=== PATIENT | female | born 1965 | race Two or more races ===

== ENCOUNTER 2018-01-01 21:23 | Inpatient (IN) | payer MEDICAID ==
[~2018-01-01] VITALS: Ht 154.9 cm; Wt 110.6 kg
[~2018-01-01 21:23] MED LIST: ASPI81CH43 PO; ATOR20TA50 PO; CLOP75TA28 PO; HYDR-4683 PO; LISI-646 PO; LISI40TA PO; METO25TA4 PO
[2018-01-01] MEDS ORDERED: ASPirin 81 mg TAB PO ONE (22:00)
[2018-01-01 22:29] LABS: Basophils # (auto) 0.1 uL; Basophils % (auto) 0.9 % (0.0-2.0); Eosinophils # (auto) 0.5 uL; Eosinophils % (auto) 4.4 % (0.0-7.0); Hematocrit 36.7 % (36.0-46.0); Hemoglobin 12.3 g/dL (12.2-16.2); Lymphocytes # (auto) 2.7 uL; Lymphocytes % (auto) 25.6 % (10.0-50.0); Mean Corpuscular Hemoglobin 30.6 pg (28.0-32.0); Mean Corpuscular Hgb Conc. 33.5 g/dL (32.0-36.0); Mean Corpuscular Volume 91.5 fL (80.0-100.0); Monocytes # (auto) 0.9 uL; Monocytes % (auto) 8.3 % (0.0-12.0); Neutrophils # (auto) 6.4 uL; Neutrophils % (auto) 60.8 % (37.0-80.0); Nucleated Red Blood Cells % 0.1 %; Platelet Count (auto) 289 10^3/uL (140-450); Red Blood Cells 4.01 10^6/uL (4.0-5.20); Red Cell Distribution Width 14.4 % (11.8-14.3); White Blood Cell 10.6 10^3/uL (4.4-10.8)
[2018-01-01 22:50] LABS: Albumin 2.9 g/dL (3.4-5.0); BUN/Creatinine Ratio 13.3; Calcium 7.9 mg/dL (8.5-10.1); Magnesium 2.2 mg/dL (1.6-2.6); Potassium 3.7 mmol/L (3.5-5.1)
[2018-01-01 22:54] LABS: INR 0.93 (0.9-1.15); Partial Thromboplastin Time 26.4 sec (23.78-33.04)
[2018-01-01 22:55] LABS: Bilirubin, Total 0.3 mg/dL (0.2-1.0)
[2018-01-01] MEDS ORDERED: ONDANSETRON HCL 4 MG/2 ML VIAL IV ONE (23:45)
[2018-01-01] MEDS ORDERED: MORPHINE SULFATE 4 MG/ML SYR/VIAL IV ONE (23:45)
[2018-01-02] VITALS (8 sets, daily range): BP systolic 119–150; BP diastolic 59–88
[2018-01-02] MEDS ORDERED: NITROGLYCERIN 0.4 MG SL TAB SL ONE ×2 (00:01→10:00)
[2018-01-02] MEDS ORDERED: TEMAZEPAM 15 MG CAP PO PRN (01:00)
[2018-01-02] MEDS ORDERED: MORPHINE SULF INJ 2 MG/ML SYRINGE 1ML IV PRN (01:00)
[2018-01-02] MEDS ORDERED: ONDANSETRON HCL 4 MG/2 ML VIAL IV PRN (01:00)
[2018-01-02] MEDS: NITROGLYCERIN 0.4 MG SL TAB SL PRN ×3 (02:10→19:03)
[2018-01-02] MEDS: HYDROcodone-ACET 5/325MG TAB PO PRN ×3 (03:47→20:14)
[2018-01-02 06:54] LABS: Basophils # (auto) 0 uL; Basophils % (auto) 0.4 % (0.0-2.0); Eosinophils # (auto) 0.5 uL; Eosinophils % (auto) 4.4 % (0.0-7.0); Hematocrit 34.1 % (36.0-46.0); Hemoglobin 11.5 g/dL (12.2-16.2); Lymphocytes # (auto) 3.1 uL; Lymphocytes % (auto) 28.5 % (10.0-50.0); Mean Corpuscular Hemoglobin 30.7 pg (28.0-32.0); Mean Corpuscular Hgb Conc. 33.7 g/dL (32.0-36.0); Mean Corpuscular Volume 91.2 fL (80.0-100.0); Monocytes % (auto) 9.1 % (0.0-12.0); Neutrophils # (auto) 6.2 uL; Neutrophils % (auto) 57.6 % (37.0-80.0); Nucleated Red Blood Cells % 0.1 %; Platelet Count (auto) 265 10^3/uL (140-450); Red Blood Cells 3.75 10^6/uL (4.0-5.20); Red Cell Distribution Width 13.9 % (11.8-14.3); White Blood Cell 10.7 10^3/uL (4.4-10.8)
[2018-01-02 06:56] LABS: BUN/Creatinine Ratio 16.9; Calcium 8.1 mg/dL (8.5-10.1); Potassium 3.7 mmol/L (3.5-5.1)
[2018-01-02] MEDS ORDERED: METOPROLOL SUCCINATE XL 50 MG TAB PO SCH (10:00)
[2018-01-02] MEDS: CLOPIDOGREL BISULFATE 75 MG TAB PO SCH (10:08)
[2018-01-02] MEDS: LISINOPRIL 20 MG TAB PO SCH (10:08)
[2018-01-02] MEDS ORDERED: ENOXAPARIN SOD 120 MG/0.8 ML SYRINGE SC ONE (19:00)
[2018-01-03] MEDS: HYDROcodone-ACET 5/325MG TAB PO PRN ×4 (00:17→21:33)
[2018-01-03 05:00] VITALS: BP 155/89
[2018-01-03 06:32] LABS: Urine Bacteria NONE SEEN /hpf (None Seen); Urine Blood Negative /uL (Negative); Urine Specific Gravity 1.013 (1.001-1.035); Urine WBC <1 /hpf (0 - 5)
[2018-01-03] MEDS ORDERED: LIDOCAINE 2%HCL (LOCAL ANESTH.) INJ 10ml MDV ONE (07:27)
[2018-01-03] MEDS ORDERED: IODIXANOL 320MG/ML 100ML BTL IV ONE (07:27)
[2018-01-03 09:09] VITALS: BP 153/81
[2018-01-03] MEDS ORDERED: ANGIOMAX 250 MG VIAL IV ONE (11:21)
[2018-01-03] MEDS ORDERED: MIDAZOLAM HCL 1MG/1ML-2 ML VIAL ONE (11:21)
[2018-01-03] MEDS ORDERED: fentaNYL CITRATE 100 MCG/2 ML VL ONE (11:21)
[2018-01-03] MEDS ORDERED: SODIUM CHL 0.9% 0 ML ONE (11:21)
[2018-01-03] MEDS ORDERED: hydrALAZINE HCL 20 MG/ML VL ONE (11:46)
[2018-01-03] MEDS: CLOPIDOGREL BISULFATE 75 MG TAB PO SCH ×2 (11:51→13:00)
[2018-01-03] MEDS: LISINOPRIL 20 MG TAB PO SCH (11:51)
[2018-01-03] MEDS: ACETAMINOPHEN 500 MG TAB PO PRN (14:54)
[2018-01-03 17:34] VITALS: BP 115/58
[2018-01-03 21:51] VITALS: BP 118/63
[2018-01-03] MEDS ORDERED: ATORVASTATIN 20 MG TAB PO SCH (22:00)
[2018-01-04] MEDS: HYDROcodone-ACET 5/325MG TAB PO PRN ×2 (01:34→05:48)
[2018-01-04 05:22] VITALS: BP 168/80
[2018-01-04 05:48] VITALS: BP 157/92
[2018-01-04 06:25] LABS: Basophils # (auto) 0 uL; Basophils % (auto) 0.4 % (0.0-2.0); Eosinophils # (auto) 0.3 uL; Eosinophils % (auto) 2.6 % (0.0-7.0); Hematocrit 36.5 % (36.0-46.0); Hemoglobin 12.1 g/dL (12.2-16.2); Lymphocytes # (auto) 1.8 uL; Lymphocytes % (auto) 17.2 % (10.0-50.0); Mean Corpuscular Hemoglobin 30.1 pg (28.0-32.0); Mean Corpuscular Hgb Conc. 33.1 g/dL (32.0-36.0); Monocytes # (auto) 0.8 uL; Monocytes % (auto) 7.6 % (0.0-12.0); Neutrophils # (auto) 7.7 uL; Neutrophils % (auto) 72.2 % (37.0-80.0); Platelet Count (auto) 335 10^3/uL (140-450); Red Blood Cells 4.01 10^6/uL (4.0-5.20); Red Cell Distribution Width 13.9 % (11.8-14.3); White Blood Cell 10.7 10^3/uL (4.4-10.8)
[2018-01-04 06:48] LABS: BUN/Creatinine Ratio 13.6; Magnesium 2.4 mg/dL (1.6-2.6); Potassium 3.5 mmol/L (3.5-5.1)
[2018-01-04 09:00] VITALS: BP 137/76
[2018-01-04] MEDS ORDERED: POTASSIUM CHL 20 Meq TABLET PO ONE (09:45)
[2018-01-04] MEDS ORDERED: ENOXAPARIN SOD 120 MG/0.8 ML SYRINGE SC SCH (10:00)
[2018-01-04] MEDS ORDERED: ASPirin-EC 81 mg tab PO SCH (10:00)
[2018-01-04] MEDS ORDERED: CLOPIDOGREL BISULFATE 75 MG TAB PO SCH (10:00)
[2018-01-04] MEDS: LISINOPRIL 20 MG TAB PO SCH (10:03)
[2018-01-04] MEDS: ACETAMINOPHEN 500 MG TAB PO PRN (10:16)
[2018-01-04] MEDS ORDERED: ISOS20TA49 PO (10:22)
== END 2018-01-04 12:55 | disposition home or self-care (01) | DRG 192 ==
LOC: ER 21:23 → TELE 21:24 → TELE-WESTW 01-02 01:55
PROVIDERS: ADMIT Nurse Practitioner Family; ATTEND Internal Medicine
PROC: 4A023N7 Measurement of Cardiac Sampling and Pressure, Left Heart, Percutaneous Approach (ICD-10-PCS; principal; 2018-01-03)
PROC: B2111ZZ Fluoroscopy of Multiple Coronary Arteries using Low Osmolar Contrast (ICD-10-PCS; 2018-01-03)
PROC: B2151ZZ Fluoroscopy of Left Heart using Low Osmolar Contrast (ICD-10-PCS; 2018-01-03)
DX: I11.0 Hypertensive heart disease with heart failure (principal); I24.9 Acute ischemic heart disease, unspecified; Z68.42 Body mass index [BMI] 45.0-49.9, adult; I25.110 Atherosclerotic heart disease of native coronary artery with unstable angina pectoris; I50.33 Acute on chronic diastolic (congestive) heart failure; E66.01 Morbid (severe) obesity due to excess calories; E78.5 Hyperlipidemia, unspecified; F17.210 Nicotine dependence, cigarettes, uncomplicated; M54.30 Sciatica, unspecified side; R00.1 Bradycardia, unspecified; E66.9 Obesity, unspecified; Z82.49 Family history of ischemic heart disease and other diseases of the circulatory system; Z79.82 Long term (current) use of aspirin; I25.2 Old myocardial infarction; Z90.710 Acquired absence of both cervix and uterus; Z91.19 Patient's noncompliance with other medical treatment and regimen; Z83.3 Family history of diabetes mellitus; Z95.1 Presence of aortocoronary bypass graft; Z95.5 Presence of coronary angioplasty implant and graft; Z88.8 Allergy status to other drugs, medicaments and biological substances
CPT/HCPCS: 36415; 71046; 80048; 80053; 81001; 83735; 83880; 84484; 85025; 85610; 85730; 86850; 86900; 86901; 87081; 93005; 93458; 94761; 96374; 96375; 99152; A6257; J2001; J2250; J2405; Q9967

== ENCOUNTER 2018-06-30 15:57 | Inpatient (IN) | payer SELFPAY ==
[~2018-06-30] VITALS: Ht 154.9 cm; Wt 107.0 kg
[~2018-06-30 15:57] MED LIST changes: +ISOS20TA49 PO; -LISI40TA PO
[2018-06-30] MEDS ORDERED: ASPirin 81 mg TAB PO ONE (16:15)
[2018-06-30] MEDS ORDERED: cloNIDine HCL 0.1 MG TAB PO ONE (16:15)
[2018-06-30 17:31] LABS: Basophils # (auto) 0 uL; Basophils % (auto) 0.2 % (0.0-2.0); Eosinophils # (auto) 0.3 uL; Eosinophils % (auto) 2.9 % (0.0-7.0); Hematocrit 42.1 % (36.0-46.0); Lymphocytes # (auto) 2.7 uL; Lymphocytes % (auto) 27.5 % (10.0-50.0); Mean Corpuscular Hemoglobin 30.1 pg (28.0-32.0); Mean Corpuscular Hgb Conc. 33.3 g/dL (32.0-36.0); Mean Corpuscular Volume 90.3 fL (80.0-100.0); Monocytes # (auto) 0.7 uL; Monocytes % (auto) 6.7 % (0.0-12.0); Neutrophils # (auto) 6.2 uL; Neutrophils % (auto) 62.7 % (37.0-80.0); Nucleated Red Blood Cells % 0.1 %; Platelet Count (auto) 255 10^3/uL (140-450); Red Blood Cells 4.66 10^6/uL (4.0-5.20); Red Cell Distribution Width 14.9 % (11.8-14.3); White Blood Cell 9.8 10^3/uL (4.4-10.8)
[2018-06-30 17:40] LABS: INR 0.92 (0.9-1.15); Partial Thromboplastin Time 25.9 sec (23.78-33.04); Prothrombin Time 9.9 sec (9.27-12.13)
[2018-06-30 17:48] LABS: Albumin 3.6 g/dL (3.4-5.0); Anion Gap 6 (5-15); Blood Urea Nitrogen 11 mg/dL (7-18); Calcium 8.2 mg/dL (8.5-10.1); Carbon Dioxide 26 mmol/L (21-32); Chloride 107 mmol/L (98-107); Glucose 108 mg/dL (74-106); Potassium 3.8 mmol/L (3.5-5.1); Sodium 139 mmol/L (136-145)
[2018-06-30 17:50] LABS: Alanine Aminotransferase 29 U/L (13-56); Aspartate Aminotransferase 14 U/L (15-37); BUN/Creatinine Ratio 14.5; GFR African American > 60 mL/min; GFR Non-African American > 60 mL/min
[2018-06-30 17:55] LABS: Alkaline Phosphatase 95 U/L (45-117); Bilirubin, Total 0.2 mg/dL (0.2-1.0); Total Protein 7.8 g/dL (6.4-8.2)
[2018-06-30] MEDS ORDERED: MORPHINE SULFATE 4 MG/ML SYR/VIAL IV PRN (18:15)
[2018-06-30] MEDS ORDERED: LACTULOSE 20Gm/30ML SOLN PO PRN (18:15)
[2018-06-30] MEDS: HYDROcodone-ACET 5/325MG TAB PO PRN (18:36)
--- NOTE | 2018-06-30 21:10 | NUR ---
TELE ADMIT FROM ER RECEIVED PATIENT VIA GURNEY FROM ER WITH AT BEDSIDE. NO S/S OF DISTRESS OR SOB. PATIENT REPORTS ONGOING CHEST PAIN X2 DAYS AND REQUESTING PAIN MEDICATION. WILL MEDICATE PER MEDICATION ORDERS. PATIENT A/O X4, AMBULATORY. PT UPDATED ON POC, VERBALIZED UNDERSTANDING. BED LOCKED IN LOW POSITION, CALL LIGHT WITHIN REACH, WILL CONTINUE TO MONITOR PATIENT Q1HR AND PRN.
[2018-06-30 21:30] VITALS: BP 117/69
[2018-06-30] MEDS ORDERED: ATORVASTATIN 20 MG TAB PO SCH (22:00)
[2018-06-30] MEDS: SODIUM CHLOR 0.9% PF (SALINE LOCK) 10ML VIAL/SYR IV SCH (22:32)
[2018-06-30 22:55] VITALS: BP 112/67
[2018-07-01] MEDS: HYDROcodone-ACET 5/325MG TAB PO PRN ×3 (00:46→14:59)
[2018-07-01 05:30] VITALS: BP 140/87
[2018-07-01 06:02] LABS: Cholesterol 186 mg/dL (< 200); HDL Cholesterol 42 mg/dL (40-59); LDL Cholesterol 127 mg/dL (< 100); Triglycerides 175 mg/dL (< 150)
[2018-07-01] MEDS: SODIUM CHLOR 0.9% PF (SALINE LOCK) 10ML VIAL/SYR IV SCH ×3 (06:05→21:59)
--- NOTE | 2018-07-01 08:00 | NUR ---
RECEIVED PATIENT ALERT AND ORIENTED X4, NOT IN DISTRESS, CLEAR SOUNDS IN BILATERAL LUNG SOUNDS, RR=18 SAT=98% RA, SB R=44 ON TELE MONITOR, DENIED CHEST AT THIS MOMENT, ABDOMEN SOFT WITH ACTIVE BS, LAST BM 06/30/18 REPORTED, GENERALIZED WEAKNESS, NOTED, SKIN INTACT WARM TO TOUCH, RESTING ON BED, HEAD OF BED ELEVATED HEAD ON LOWER POSITION, RAILS UP X2, CALL LIGHT ON REACH, PENDING CARDIAC CONSULT, WILL CONTINUE MONITORING.
[2018-07-01 09:00] VITALS: BP 144/73
[2018-07-01] MEDS: NITROGLYCERIN 0.2MG/HR TOPICAL PATCH TD SCH (10:00)
[2018-07-01] MEDS ORDERED: METOPROLOL SUCCINATE XL 50 MG TAB PO SCH (10:00)
[2018-07-01] MEDS: PANTOPRAZOLE 40 MG TAB PO SCH (10:17)
[2018-07-01] MEDS: ASPirin 81 mg TAB PO SCH (10:17)
[2018-07-01] MEDS: CLOPIDOGREL BISULFATE 75 MG TAB PO SCH (10:17)
[2018-07-01] MEDS: LISINOPRIL 20 MG TAB PO SCH (10:18)
[2018-07-01] MEDS: ENOXAPARIN SOD 40 MG/0.4 ML SYRINGE SC SCH (10:18)
[2018-07-01] MEDS: MORPHINE SULFATE 4 MG/ML SYR/VIAL IV PRN ×2 (10:20→20:37)
[2018-07-01 13:00] VITALS: BP 147/80
[2018-07-01] MEDS ORDERED: cloNIDine HCL 0.1 MG TAB PO PRN (13:00)
--- NOTE | 2018-07-01 16:00 | NUR ---
NOT IN DISTRESS, RESTING ON BED, BRADYCARDIA ON TELE MONITOR R=[id number] ASYMPTOMATIC, PENDING CARDIAC CONSULT, DR LALA WAS CALLED AND PAGED FOR FOLLOW UP, WAITING FOR CALL BACK.
[2018-07-01 17:00] VITALS: BP 140/70
--- NOTE | 2018-07-01 18:43 | NUR ---
NOT IN DISTRESS, SITTING ON BED AND EATING DINNER, CARDIAC CONSULT WAS DONE BY DR. LALA, AT , WILL CONTINUE MONITORING.
--- NOTE | 2018-07-01 19:15 | NUR ---
NOT IN DISTRESS, DENIED PAIN, REPORT WAS GIVEN TO THE MANNEQUIN MOLD MAKER RN.
--- NOTE | 2018-07-01 19:44 | NUR ---
RECEIVED PATIENT FROM DAY SHIFT RN. PATIENT RESTING IN BED. NO S/S OF DISTRESS NOTED. C/O BACK AND CHEST PAIN @ 6/10. IV ACCESS OUT WHEN PATIENT SLEEPING. INTACT CATHETER FOUND ON THE BED. WILL COME BACK FOR THE IV INSERTION AND PAIN MEDICATION LATER. PATIENT VERBALIZED UNDERSTANDING. POC INSTRUCTED AND ENCOURAGED PATIENT TO CALL FOR FARM PRODUCT PURCHASER IF NEEDED. BED IN LOWEST POSITION WITH SIDE RAILS UP X 2. CALL RUBIO WITHIN REACH. CONTINUE TO MONITOR FOR CHANGES Q1H AND PRN.
--- NOTE | 2018-07-01 20:38 | NUR ---
IV insertion AND PAIN MANAGEMENT IV access obtained, via clean sterile technique by inserting [22] gauge catheter at [LFA] after [1] attempt(s). IV secured properly. No trauma to site. Patient tolerated well. PAIN MEDICATION GIVEN ORDERED FOR PAIN @ 6/10. CONTINUE TO MONITOR.
[2018-07-01] MEDS: ATORVASTATIN 20 MG TAB PO SCH (21:58)
[2018-07-01 22:00] VITALS: BP 148/77
--- NOTE | 2018-07-01 22:10 | NUR ---
PATIENT'S FAMILY CALLED, PASSWORD CONFIRMED. UPDATED INFO, PHONE TRANSFERRED TO PATIENT AFTER.
[2018-07-02] MEDS: HYDROcodone-ACET 5/325MG TAB PO PRN ×3 (00:04→21:37)
--- NOTE | 2018-07-02 00:05 | NUR ---
PATIENT C/O PAIN @ 11/14. MEDICATION GIVEN ORDERED. CONTINUE TO MONITOR.
--- NOTE | 2018-07-02 00:48 | NUR ---
URINE SAMPLE COLLECTED AND SENT. CONTINUE CARE.
[2018-07-02 00:54] LABS: Urine Bacteria FEW /hpf (None Seen); Urine Blood Negative /uL (Negative); Urine Hyaline Cast FEW /lpf (0 - 2); Urine Mucus FEW (None Seen); Urine Specific Gravity 1.025 (1.001-1.035); Urine WBC 1 /hpf (0 - 5)
[2018-07-02 01:49] LABS: Alcohol, Urine < 3.0 mg/dL (0-5); Amphetamine Screen, Urine NEGATIVE (NEGATIVE); Barbiturate Scree,Urine NEGATIVE (NEGATIVE); Benzodiazephine Screen, Urine NEGATIVE (NEGATIVE); Cannabinoid Screen, Urine NEGATIVE (NEGATIVE); Cocaine Screen, Urine NEGATIVE (NEGATIVE); Opiate Scree,Urine POSITIVE (NEGATIVE); Phencyclidine Screen, Urine NEGATIVE (NEGATIVE)
[2018-07-02] MEDS: MORPHINE SULFATE 4 MG/ML SYR/VIAL IV PRN ×3 (03:34→19:47)
--- NOTE | 2018-07-02 03:34 | NUR ---
PATIENT C/O PAIN @ 11/14. MEDICATION GIVEN ORDERED. CONTINUE TO MONITOR.
--- NOTE | 2018-07-02 04:03 | NUR ---
BAKERY CHEF I was called to the main lobby to speak to the of patient, he is upset states that other people are allowed to stay the night but he is not allowed to. I advised that I walked the unit and looked in every room and there are no other visitors staying the night. At this time the changed his story and said that he was called and advised to harley over because "his was sicker", than when he got here they told him that there are two patients with his 's name and they called the wrong family that his was fine and since he was here that he could stay. I advised the patient that I checked the census and there was only one patient in the whole hospital with his 's name and that the primary RN does not recall the incident he is referring to. The than stated that he was sitting in the [facility] waiting room where there were other visitors and we are kicking him out, I again went over the visitors policy which included different visiting hours for different units because those patients are sicker than the patients on the [facility]. states that he was here with a different visit with his and was allowed to stay I apologized that we did not follow policy at that time but we are going to follow the policy at this point and he became confrontational and started repeating what I was saying to him back to me over and over so I advised that he could go back to the room to get his keys and due to his concerns for driving in the dark and being on his night medications he could stay in the main lobby until it was safe for him to drive I advised that he could call his but going to the unit would not be permitted until visiting hours and this was for the rest of this stay unless her status changes. He was provided with my professional information and the Director for the units information to follow up if he feels his issue is not resolved.
[2018-07-02] MEDS: SODIUM CHLOR 0.9% PF (SALINE LOCK) 10ML VIAL/SYR IV SCH ×3 (05:36→21:36)
[2018-07-02 05:42] VITALS: BP 131/78
--- NOTE | 2018-07-02 08:00 | NUR ---
RECEIVED PATIENT ALERT AND ORIENTED X4, NOT IN DISTRESS, CLEAR SOUNDS IN BILATERAL LUNG LOBES, RR=18 SAT=98% RA, S SAMPSON W/BBB R=42-46 ON TELE MONITOR, DENIED CHEST PAIN OR DISCOMFORT, ABDOMEN SOFT WITH ACTIVE BS, LAST BM=06/29/18 REPORTED, GENERALIZED WEAKNESS, NOTED, SKIN INTACT WARM TO TOUCH RADIAL AND PEDAL PULSES PALPABLE, RESTING ON BED, PENDING STRESS TEST ON WEDNESDAY REPORTED, HEAD OF BED ELEVATED, BED ON LOWER POSITION, RAILS UP X2, CALL LIGHT ON REACH, WILL CONTINUE MONITORING.
[2018-07-02 09:00] VITALS: BP 138/76
[2018-07-02] MEDS: ASPirin 81 mg TAB PO SCH (09:48)
[2018-07-02] MEDS: PANTOPRAZOLE 40 MG TAB PO SCH (09:48)
[2018-07-02] MEDS: LISINOPRIL 20 MG TAB PO SCH (09:49)
[2018-07-02] MEDS: ENOXAPARIN SOD 40 MG/0.4 ML SYRINGE SC SCH (09:49)
[2018-07-02] MEDS: CLOPIDOGREL BISULFATE 75 MG TAB PO SCH (09:50)
[2018-07-02] MEDS: NITROGLYCERIN 0.2MG/HR TOPICAL PATCH TD SCH (09:50)
--- NOTE | 2018-07-02 10:00 | NUR ---
C/O GENERALIZED BODY ACH PAIN L=7/10 NORCO PO PRN WAS GIVEN 30 MINUTES LATER PAIN L=3/10, OUT OF BED TO BR, TOLERATED WELL, SITTING ON BED TALKING TO , WILL CONTINUE MONITORING.
--- NOTE | 2018-07-02 12:56 | NUR ---
TOLERATED 100% OF LUNCH TRAY, NOT IN DISTRESS, DENIED PAIN, RESTING ON BED, PENDING STRESS TEST AND ECHO, WILL CONTINUE MONITORING.
[2018-07-02 13:00] VITALS: BP 130/70
[2018-07-02 15:16] VITALS: BP 128/74
--- NOTE | 2018-07-02 19:15 | NUR ---
NOT IN DISTRESS, DENIED PAIN, REPORT WAS GIVEN TO THE TRANSPORTATION ENGINEER RN.
--- NOTE | 2018-07-02 19:50 | NUR ---
RECEIVED PATIENT FROM DAY SHIFT RN. PATIENT RESTING IN BED. FAMILY AT BEDSIDE. NO S/S OF DISTRESS NOTED. C/O BACK AND CHEST PAIN @ 7/10. MEDICATED PATIENT ORDERED. PATIENT C/O HARD TO BREATH, OXYGEN APPLIED @ 2L/NC. ROSA FELLS BETTER AT THAT. POC INSTRUCTED AND ENCOURAGED PATIENT TO CALL FOR FISH SKINNING MACHINE FEEDER IF NEEDED. BED IN LOWEST POSITION WITH SIDE RAILS UP X 2. CALL RUBIO WITHIN REACH. CONTINUE TO MONITOR FOR CHANGES Q1H AND PRN.
--- NOTE | 2018-07-02 20:27 | NUR ---
REASSESSED PATIENT, PAIN LEVEL DOWN TO 5/10. WILL CONTINUE TO MONITOR. STILL AT BEDSIDE, REINFORCED THE THAT THE VISIT HOURS IS DUE, HE SHOULD GO, HE STATED THAT HE KNEW AND WE DID THE SAME TO HIM LAST NIGHT. AND WE EVEN CALLED SECURITY TO LET HIM GO. TOLD THE THAT HE IS NOT SUPPOSED TO STAY HERE. WILL GO BACK AND CHECK LATER.
[2018-07-02] MEDS: ATORVASTATIN 20 MG TAB PO SCH (21:36)
[2018-07-02 22:15] VITALS: BP 141/68
--- NOTE | 2018-07-02 22:45 | NUR ---
PATIENT SLEEPING. NO S/S OF DISTRESS AND PAIN NOTED. CONTINUE TO MONITOR.
--- NOTE | 2018-07-03 00:03 | NUR ---
PATIENT'S FAMILY CALLED, PASSWORD CONFIRMED. INFO UPDATED. CONTINUE CARE.
[2018-07-03] MEDS: MORPHINE SULFATE 4 MG/ML SYR/VIAL IV PRN ×2 (01:45→19:42)
--- NOTE | 2018-07-03 01:46 | NUR ---
[facility] CALLED THAT PATIENT'S HR DOWN TO 30S. CHECKED PATIENT, NO S/S OF DISTRESS NOTED. PATIENT SLEEPING. WOKE PATIENT UP. HR BACK TO 46. PATIENT C/O PAIN @ 8/10, MEDICATED PATIENT ORDERED. CONTINUE TO MONITOR.
--- NOTE | 2018-07-03 03:01 | NUR ---
PATIENT UP TO BATHROOM WITH STEADY GAIT. NO S/S OF DISTRESS NOTED. STATED THAT PAIN GETTING BETTER. CONTINUE TO MONITOR.
[2018-07-03] MEDS: SODIUM CHLOR 0.9% PF (SALINE LOCK) 10ML VIAL/SYR IV SCH ×3 (05:44→21:56)
[2018-07-03 05:50] VITALS: BP 157/93
--- NOTE | 2018-07-03 08:00 | NUR ---
Opening Shift Note Assumed care of patient, awake and alert. No S/S of distress/SOB or pain. Instructed on POC and to call for assist PRN, will continue to monitor for changes Q1hr and PRN.
--- NOTE | 2018-07-03 08:10 | NUR ---
IV insertion IV access obtained, via clean sterile technique by inserting 20 gauge catheter at after attempt(s). IV secured properly. No trauma to site. Patient tolerated well. Addendum: 07/03/18 at 1141 by MARY SAHU RN Right hand. after 1 attempt.
[2018-07-03] MEDS: HYDROcodone-ACET 5/325MG TAB PO PRN ×2 (08:14→14:29)
--- NOTE | 2018-07-03 08:15 | NUR ---
IV insertion IV access obtained, via clean sterile technique by inserting 20 gauge catheter at after attempt(s). IV secured properly. No trauma to site. Patient tolerated well.
[2018-07-03 09:00] VITALS: BP 170/86
[2018-07-03] MEDS: NITROGLYCERIN 0.2MG/HR TOPICAL PATCH TD SCH (09:09)
[2018-07-03] MEDS: PANTOPRAZOLE 40 MG TAB PO SCH (09:09)
[2018-07-03] MEDS: CLOPIDOGREL BISULFATE 75 MG TAB PO SCH (09:09)
[2018-07-03] MEDS: ENOXAPARIN SOD 40 MG/0.4 ML SYRINGE SC SCH (09:10)
[2018-07-03] MEDS: LISINOPRIL 20 MG TAB PO SCH (09:10)
[2018-07-03] MEDS: ASPirin 81 mg TAB PO SCH (09:10)
[2018-07-03] MEDS ORDERED: hydrALAZINE HCL 25 MG TAB PO PRN ×2 (09:30→16:30)
--- NOTE | 2018-07-03 10:53 | NUR ---
Dr. George paged regarding patient's HR between 44-53, asymptomatic , awaiting to call back.
[2018-07-03 13:00] VITALS: BP 164/89
--- NOTE | 2018-07-03 15:47 | NUR ---
Received order from Dr. George , noted and carried out.
[2018-07-03 16:51] VITALS: BP 145/82
--- NOTE | 2018-07-03 19:44 | NUR ---
RECEIVED PATIENT FROM DAY SHIFT RN. PATIENT RESTING IN BED. FAMILY AT BEDSIDE. NO S/S OF DISTRESS NOTED. C/O BACK AND CHEST PAIN @ 8/10. MEDICATED PATIENT ORDERED. REINFORCED PATIENT NPO AFTER MIDNIGHT FOR PROCEDURE TOMORROW. PATIENT VERBALIZED UNDERSTANDING. POC INSTRUCTED AND ENCOURAGED PATIENT TO CALL FOR BOX CLOSING MACHINE OPERATOR IF NEEDED. BED IN LOWEST POSITION WITH SIDE RAILS UP X 2. CALL RUBIO WITHIN REACH. CONTINUE TO MONITOR FOR CHANGES Q1H AND PRN.
[2018-07-03] MEDS: ATORVASTATIN 20 MG TAB PO SCH (21:55)
[2018-07-03 22:00] VITALS: BP 154/79
[2018-07-04] MEDS: hydrALAZINE HCL 25 MG TAB PO SCH ×5 (00:05→22:12)
[2018-07-04] MEDS: MORPHINE SULFATE 4 MG/ML SYR/VIAL IV PRN ×3 (00:05→08:18)
--- NOTE | 2018-07-04 00:12 | NUR ---
PATIENT C/O PAIN @ 12/14. MEDICATED PATIENT ORDERED. REINFORCED NPO FROM NOW. PATIENT VERBALIZED UNDERSTANDING. WATER AND FOOD TOOK AWAY FROM PATIENT. CONTINUE TO MONITOR.
--- NOTE | 2018-07-04 02:11 | NUR ---
PATIENT SLEEPING. NO S/S OF DISTRESS AND PAIN NOTED. CONTINUE TO MONITOR.
[2018-07-04] MEDS: SODIUM CHLOR 0.9% PF (SALINE LOCK) 10ML VIAL/SYR IV SCH ×3 (04:10→22:12)
--- NOTE | 2018-07-04 04:10 | NUR ---
PATIENT C/O PAIN @ 12/14. MEDICATED PATIENT ORDERED. CONTINUE TO MONITOR.
[2018-07-04 05:00] VITALS: BP 146/70
--- NOTE | 2018-07-04 06:39 | NUR ---
REINFORCED NPO NOW FOR PROCEDURE LATER. PATIENT VERBALIZED UNDERSTANDING . CONTINUE CARE.
[2018-07-04] MEDS: HYDROcodone-ACET 5/325MG TAB PO PRN ×2 (07:35→14:02)
--- NOTE | 2018-07-04 07:50 | NUR ---
Opening Shift Note Assumed care of patient, awake and alert. No S/S of distress/SOB. Instructed on POC and to call for assist PRN, will continue to monitor for changes Q1hr and PRN.
[2018-07-04 09:00] VITALS: BP 179/116
--- NOTE | 2018-07-04 09:00 | NUR ---
Received call from stress lab, states they cannot do the stress test today due to shortage of isotopes. Addendum: 07/04/18 at 1330 by JARROD ARRIAZA RN double entry.
--- NOTE | 2018-07-04 09:00 | NUR ---
Received call from stress lab, states they cannot do the stress test today due to shortage of isotopes. Patient informed.
--- NOTE | 2018-07-04 09:20 | NUR ---
Dr. Valentin at bedside and explained POC to patient and family.
[2018-07-04] MEDS: PROMETHAZINE HCL 25 MG/ML 1ML IV PRN ×2 (09:23→18:50)
--- NOTE | 2018-07-04 10:35 | NUR ---
Called echo lab, left message re: patient has order for echo.
[2018-07-04] MEDS: ASPirin 81 mg TAB PO SCH (11:29)
[2018-07-04] MEDS: CLOPIDOGREL BISULFATE 75 MG TAB PO SCH (11:29)
[2018-07-04] MEDS: PANTOPRAZOLE 40 MG TAB PO SCH (11:29)
[2018-07-04] MEDS: NITROGLYCERIN 0.2MG/HR TOPICAL PATCH TD SCH (11:30)
[2018-07-04] MEDS: LISINOPRIL 20 MG TAB PO SCH (11:31)
[2018-07-04] MEDS: ENOXAPARIN SOD 40 MG/0.4 ML SYRINGE SC SCH (11:31)
[2018-07-04 13:24] VITALS: BP 178/78
--- NOTE | 2018-07-04 15:37 | NUR ---
Nutrition Assessment Notes please see attached link for complete assessment Est. Needs ABW [id number] kcal (17-20kcal/kgABW), 62-78 gms pro (0.8-1.0 gms/kgABW). Will continue to monitor pertinent labs and reassess nutrient need prn Addendum: 07/04/18 at [address] Amended: Links added.
[2018-07-04 17:00] VITALS: BP 137/67
--- NOTE | 2018-07-04 18:45 | NUR ---
IV removal IV site infiltrated. DC'd with clean sterile technique, catheter fully intact. Pressure dressing applied to site. Patient tolerated well.
--- NOTE | 2018-07-04 20:00 | NUR ---
Opening Shift Note Assumed care of patient, awake and alert, oriented x4. No S/S of distress/SOB or pain. Instructed on POC, verbalized understanding, aware she will be npo p mn for stress test in am and will be needing another iv line. Side rails up x2, bed in lowest locked position, non skid socks on. Instructed to call for assist PRN, call light within reach, will continue to monitor for changes Q1hr and PRN.
[2018-07-04 22:00] VITALS: BP 123/85
--- NOTE | 2018-07-04 22:08 | NUR ---
Pt transferred to room 216A via bed with all personal belongings. sterile technician aware. Gary informed. Continue care.
[2018-07-04] MEDS: ATORVASTATIN 20 MG TAB PO SCH (22:12)
[2018-07-05 05:00] VITALS: BP 143/85
[2018-07-05] MEDS: hydrALAZINE HCL 25 MG TAB PO SCH ×5 (05:45→22:05)
[2018-07-05] MEDS: SODIUM CHLOR 0.9% PF (SALINE LOCK) 10ML VIAL/SYR IV SCH ×3 (05:45→22:04)
--- NOTE | 2018-07-05 06:00 | NUR ---
IV insertion IV access obtained, via clean sterile technique by inserting 22 gauge catheter at ILEANA after 2 attempt(s). IV secured properly. No trauma to site. Patient tolerated well. NOTE:
--- NOTE | 2018-07-05 07:45 | NUR ---
Opening Shift Note Assumed care of patient, asleep. No S/S of distress/SOB or pain. Will continue to monitor for changes Q1hr and PRN.
--- NOTE | 2018-07-05 08:53 | NUR ---
[facility] called informing that patient's tele monitor goes bradycardia and a little bit of tachycardia.
[2018-07-05 09:00] VITALS: BP 158/82
--- NOTE | 2018-07-05 09:00 | NUR ---
Dr. Valentin informed re: [facility] called informing that patient's tele monitor goes bradycardia and a little bit of tachycardia.
[2018-07-05] MEDS: MORPHINE SULFATE 4 MG/ML SYR/VIAL IV PRN ×2 (09:34→14:51)
[2018-07-05] MEDS: PROMETHAZINE HCL 25 MG/ML 1ML IV PRN (09:35)
--- NOTE | 2018-07-05 09:45 | NUR ---
SPOKE TO KEE. KEE STATES TO KEEP PATIENT ON NPO INCLUDING MEDS.
--- NOTE | 2018-07-05 10:00 | NUR ---
PATIENT ON NPO FOR PROCEDURE. 10 AM MEDS HELD AT THIS TIME.
[2018-07-05] MEDS ORDERED: ADENOSINE 91 MG in GIVE UN-DILUTED 0 ML IV STA (10:21)
--- NOTE | 2018-07-05 11:55 | NUR ---
Patient was taken downstairs for stress test.
[2018-07-05 12:40] VITALS: BP 181/98
[2018-07-05 13:00] VITALS: BP 155/95
[2018-07-05] MEDS: PANTOPRAZOLE 40 MG TAB PO SCH (14:05)
[2018-07-05] MEDS: ENOXAPARIN SOD 40 MG/0.4 ML SYRINGE SC SCH (14:05)
[2018-07-05] MEDS: LISINOPRIL 20 MG TAB PO SCH (14:05)
[2018-07-05] MEDS: ASPirin 81 mg TAB PO SCH (14:06)
[2018-07-05] MEDS: CLOPIDOGREL BISULFATE 75 MG TAB PO SCH (14:06)
--- NOTE | 2018-07-05 15:08 | NUR ---
PATIENT COMPLAINED OF CHEST PAIN.
[2018-07-05] MEDS: NITROGLYCERIN 0.4 MG SL TAB SL PRN ×2 (15:37→15:42)
--- NOTE | 2018-07-05 15:45 | NUR ---
CHEST PAIN PROTOCOL FOLLOWED. EKG RESULT SHOWED TO DR. PETERS, ATTACHED TO CHART. PATIENT HAD 2 DOSES OF NITROGLYCERIN PATIENT BP DROPPED TO 91/62 mmHg. Patient states no relief. Will inform Dr. Valentin.
[2018-07-05] MEDS: NITROGLYCERIN 0.2MG/HR TOPICAL PATCH TD SCH (15:54)
--- NOTE | 2018-07-05 15:58 | NUR ---
PAGED DR. LALA RE: PATIENT COMPLAINING OF CHEST PAIN.
[2018-07-05] MEDS ORDERED: NALBUPHINE HCL 10 MG/1ml INJECTION IV ONE (16:00)
--- NOTE | 2018-07-05 16:00 | NUR ---
DR. LALA CALLED BACK, NEW ORDER MADE.
[2018-07-05] MEDS: ACETAMINOPHEN 500 MG TAB PO PRN (16:47)
[2018-07-05 17:00] VITALS: BP 131/73
--- NOTE | 2018-07-05 18:00 | NUR ---
Hydralazine held, patient took the medication 4 hours ago, scheduled every 6 hours. Will inform night RN.
--- NOTE | 2018-07-05 20:20 | NUR ---
Opening Shift Note Assumed care of patient, awake and alert, oriented x4, c/o mild chest pain 4/10, will medicate and will reassess. Instructed on POC, verbalized understanding, aware she will be npo p mn for lhc in am, pt and pt's has not spoken to Dr George yet regarding lhc, consents to be signed after speaking with MD. Side rails up x2, bed in lowest locked position, non skid socks on. Instructed to call for assist PRN, call light within reach, will continue to monitor for changes Q1hr and PRN.
[2018-07-05] MEDS: HYDROcodone-ACET 5/325MG TAB PO PRN (20:23)
[2018-07-05 22:00] VITALS: BP 138/66
[2018-07-05] MEDS: ATORVASTATIN 20 MG TAB PO SCH (22:05)
[2018-07-06] MEDS: ACETAMINOPHEN 500 MG TAB PO PRN ×2 (00:22→12:36)
[2018-07-06] MEDS: MORPHINE SULFATE 4 MG/ML SYR/VIAL IV PRN (00:22)
[2018-07-06 05:00] VITALS: BP 131/66
[2018-07-06] MEDS: SODIUM CHLOR 0.9% PF (SALINE LOCK) 10ML VIAL/SYR IV SCH ×3 (05:40→21:57)
[2018-07-06] MEDS: hydrALAZINE HCL 25 MG TAB PO SCH ×4 (05:40→21:57)
[2018-07-06] MEDS: HYDROcodone-ACET 5/325MG TAB PO PRN ×2 (05:41→18:50)
[2018-07-06 05:59] LABS: Basophils # (auto) 0 uL; Basophils % (auto) 0.2 % (0.0-2.0); Eosinophils # (auto) 0 uL; Hematocrit 39.3 % (36.0-46.0); Hemoglobin 13.2 g/dL (12.2-16.2); Lymphocytes # (auto) 1.1 uL; Lymphocytes % (auto) 8.6 % (10.0-50.0); Mean Corpuscular Hemoglobin 30.1 pg (28.0-32.0); Mean Corpuscular Hgb Conc. 33.6 g/dL (32.0-36.0); Mean Corpuscular Volume 89.6 fL (80.0-100.0); Monocytes # (auto) 0.7 uL; Monocytes % (auto) 5.4 % (0.0-12.0); Neutrophils # (auto) 11.2 uL; Neutrophils % (auto) 85.8 % (37.0-80.0); Platelet Count (auto) 197 10^3/uL (140-450); Red Blood Cells 4.39 10^6/uL (4.0-5.20); Red Cell Distribution Width 14.8 % (11.8-14.3)
[2018-07-06 06:16] LABS: INR 1.04 (0.9-1.15); Partial Thromboplastin Time 28.4 sec (23.78-33.04); Prothrombin Time 11.1 sec (9.27-12.13)
[2018-07-06 06:21] LABS: BUN/Creatinine Ratio 17.8; Calcium 8.4 mg/dL (8.5-10.1); Potassium 3.5 mmol/L (3.5-5.1)
--- NOTE | 2018-07-06 06:40 | NUR ---
CART DRIVER INFORMED LAURA PAYAN INFORMED OF PT HAVING FEVER YESTERDAY AND LAST NIGHT AND WBC THIS AM WENT UP TO 13. RECEIVED NEW ORDER TO OBTAIN UA, BLOOD AND URINE CX, THEN START ROCEPHIN 1GM IV DAILY AFTER OBTAINING SAMPLES. PT INFORMED, VERBALIZED UNDERSTANDING. SPECIMEN CUP AT BEDSIDE. WILL ENDORSE TO DAY RN.
--- NOTE | 2018-07-06 07:15 | NUR ---
OPENING SHIFT NOTE PATIENT IS RESTING IN BED, NO S/S OF DISTRESS NOTED AT THIS TIME. BED IN LOWEST LOCKED POSITION, WILL CONTINUE TO MONITOR.
[2018-07-06 07:59] VITALS: BP 131/66
[2018-07-06 09:00] VITALS: BP 96/69
[2018-07-06] MEDS: PANTOPRAZOLE 40 MG TAB PO SCH (10:00)
[2018-07-06] MEDS: NITROGLYCERIN 0.2MG/HR TOPICAL PATCH TD SCH (10:00)
[2018-07-06] MEDS: LISINOPRIL 20 MG TAB PO SCH (10:00)
--- NOTE | 2018-07-06 10:16 | NUR ---
PATIENT TAKEN TO TOOL DRESSER VIA BED. NO S/S OF DISTRESS NOTED AT THIS TIME.
[2018-07-06 11:10] LABS: Urine Bacteria FEW /hpf (None Seen); Urine Blood Negative /uL (Negative); Urine Mucus FEW (None Seen); Urine Specific Gravity 1.031 (1.001-1.035); Urine WBC 3 /hpf (0 - 5)
[2018-07-06] MEDS ORDERED: IOHEXOL 350 MG/ML 100ML IJ ONE (15:13)
[2018-07-06] MEDS ORDERED: LIDOCAINE 2%HCL (LOCAL ANESTH.) INJ 20ML MDV ONE (15:13)
[2018-07-06] MEDS ORDERED: ANGIOMAX 250 MG VIAL IV ONE (15:23)
[2018-07-06] MEDS ORDERED: fentaNYL CITRATE 100 MCG/2 ML VL ONE (15:23)
[2018-07-06] MEDS ORDERED: MIDAZOLAM HCL 1MG/1ML-2 ML VIAL ONE (15:24)
[2018-07-06] MEDS ORDERED: SODIUM CHL 0.9% 0 ML ONE (15:24)
--- NOTE | 2018-07-06 17:14 | NUR ---
PATIENT IS BACK TO ROOM. NO S/S OF DISTRESS NOTED AT THIS TIME. PATIENT IS LAYING FLAT UNTIL 1830. PATIENT VERBALIZED UNDERSTANDING. WILL CONTINUE TO MONITOR.
[2018-07-06] MEDS: ASPirin 81 mg TAB PO SCH (17:29)
[2018-07-06] MEDS: CLOPIDOGREL BISULFATE 75 MG TAB PO SCH (17:29)
[2018-07-06] MEDS: cefTRIAXone 1GM/50ML D5W 50 ML IV SCH (17:29)
--- NOTE | 2018-07-06 19:17 | NUR ---
GAVE REPORT TO ALESHIA GALARZA.
--- NOTE | 2018-07-06 20:15 | NUR ---
Opening Shift Note Assumed care of patient, awake and alert, oriented x4. No S/S of distress/SOB or pain. R groin dsg clean, dry and intact, site asymptomatic, pedal pulses palpable. Instructed on POC, verbalized understanding. Side rails up x2, bed in lowest locked position, non skid socks on. Instructed to call for assist PRN, call light within reach, will continue to monitor for changes Q1hr and PRN.
[2018-07-06] MEDS: ATORVASTATIN 20 MG TAB PO SCH (21:57)
[2018-07-06 22:00] VITALS: BP 151/85
[2018-07-07] MEDS: HYDROcodone-ACET 5/325MG TAB PO PRN ×2 (01:07→07:53)
[2018-07-07 05:26] VITALS: BP 138/62
[2018-07-07] MEDS: hydrALAZINE HCL 25 MG TAB PO SCH (05:57)
[2018-07-07] MEDS: SODIUM CHLOR 0.9% PF (SALINE LOCK) 10ML VIAL/SYR IV SCH (05:57)
[2018-07-07 08:49] VITALS: BP 141/69
[2018-07-07] MEDS: cefTRIAXone 1GM/50ML D5W 50 ML IV SCH (08:54)
[2018-07-07] MEDS: PANTOPRAZOLE 40 MG TAB PO SCH (09:17)
[2018-07-07] MEDS: LISINOPRIL 20 MG TAB PO SCH (09:17)
[2018-07-07] MEDS: ASPirin 81 mg TAB PO SCH (09:17)
[2018-07-07] MEDS: CLOPIDOGREL BISULFATE 75 MG TAB PO SCH (09:17)
[2018-07-07] MEDS ORDERED: ENOXAPARIN SOD 40 MG/0.4 ML SYRINGE SC SCH (10:00)
[2018-07-07] MEDS: NITROGLYCERIN 0.2MG/HR TOPICAL PATCH TD SCH (10:00)
--- NOTE | 2018-07-07 10:26 | NUR ---
PT SEEN BY DR. CAVANAUGH, HE SAID PT CAN GO HOME.
[2018-07-07 10:53] VITALS: BP 141/69
--- NOTE | 2018-07-07 12:25 | NUR ---
Discharge instructions given as ordered. Encourage to follow up with [facility] IN 2 WEEKS TEL# AND ADDRESS PROVIDED TO THE PT. INSTRUCTED TO FOLLOW UP WITH CARDIOLOGY THROUGH PCP SOON SHE GET HER INSURANCE ACTIVE, DR. LALA'S OFFICE PHONE NUMBER GIVEN TO PT TO MAKE AN APPOINTMENT. All questions and concerns addressed. Patient verbalized understanding. Medication reconciliation form completed and copy given to patient. IV removed with catheter intact, pressure dressing applied. Telemetry unit returned to ICU. Patient taken to vehicle via wheelchair with all personal belongings, accompanied by staff and family member. No distress noted at time of departure.
== END 2018-07-07 12:25 | disposition home or self-care (01) | DRG 287 ==
LOC: ER 15:59 → TELE 18:07 → TELE-CENTR 21:39
PROVIDERS: ADMIT Internal Medicine; ATTEND Family Medicine
PROC: 4A023N7 Measurement of Cardiac Sampling and Pressure, Left Heart, Percutaneous Approach (ICD-10-PCS; principal; 2018-07-06)
PROC: B2111ZZ Fluoroscopy of Multiple Coronary Arteries using Low Osmolar Contrast (ICD-10-PCS; 2018-07-06)
PROC: B2151ZZ Fluoroscopy of Left Heart using Low Osmolar Contrast (ICD-10-PCS; 2018-07-06)
DX: I25.10 Atherosclerotic heart disease of native coronary artery without angina pectoris (principal); I24.9 Acute ischemic heart disease, unspecified; Z68.41 Body mass index [BMI] 40.0-44.9, adult; E78.00 Pure hypercholesterolemia, unspecified; E78.5 Hyperlipidemia, unspecified; F17.210 Nicotine dependence, cigarettes, uncomplicated; I16.0 Hypertensive urgency; E66.01 Morbid (severe) obesity due to excess calories; I50.9 Heart failure, unspecified; I11.0 Hypertensive heart disease with heart failure; I25.2 Old myocardial infarction; Z79.82 Long term (current) use of aspirin; Z79.899 Other long term (current) drug therapy; Z83.3 Family history of diabetes mellitus; Z90.710 Acquired absence of both cervix and uterus; Z91.19 Patient's noncompliance with other medical treatment and regimen; Z95.5 Presence of coronary angioplasty implant and graft; Z82.61 Family history of arthritis; Z82.49 Family history of ischemic heart disease and other diseases of the circulatory system; Z88.8 Allergy status to other drugs, medicaments and biological substances
CPT/HCPCS: 36415; 71046; 78452; 80048; 80053; 80061; 80307; 81001; 82550; 83880; 84443; 84484; 85025; 85379; 85610; 85652; 85730; 86141; 86850; 86900; 86901; 87040; 87086; 93005; 93017; 93306; A6257; G0378; J0153; J0696; J2250

== ENCOUNTER 2018-08-19 19:47 | Inpatient (IN) | payer MEDICAID ==
[~2018-08-19] VITALS: Ht 154.9 cm; Wt 115.2 kg
[2018-08-19 20:45] LABS: Basophils # (auto) 0.1 uL; Basophils % (auto) 0.6 % (0.0-2.0); Eosinophils # (auto) 0.3 uL; Eosinophils % (auto) 2.8 % (0.0-7.0); Hematocrit 41.1 % (36.0-46.0); Hemoglobin 13.8 g/dL (12.2-16.2); Lymphocytes # (auto) 2.8 uL; Lymphocytes % (auto) 26.7 % (10.0-50.0); Mean Corpuscular Hemoglobin 30.6 pg (28.0-32.0); Mean Corpuscular Hgb Conc. 33.6 g/dL (32.0-36.0); Monocytes # (auto) 0.8 uL; Monocytes % (auto) 7.8 % (0.0-12.0); Neutrophils # (auto) 6.5 uL; Neutrophils % (auto) 62.1 % (37.0-80.0); Nucleated Red Blood Cells % 0.1 %; Platelet Count (auto) 224 10^3/uL (140-450); Red Blood Cells 4.52 10^6/uL (4.0-5.20); Red Cell Distribution Width 14.3 % (11.8-14.3); White Blood Cell 10.5 10^3/uL (4.4-10.8)
[2018-08-19 21:00] LABS: Albumin 3.3 g/dL (3.4-5.0); Anion Gap 4 (5-15); Blood Urea Nitrogen 18 mg/dL (7-18); Calcium 8.2 mg/dL (8.5-10.1); Carbon Dioxide 27 mmol/L (21-32); Chloride 111 mmol/L (98-107); Glucose 106 mg/dL (74-106); Potassium 4.1 mmol/L (3.5-5.1); Sodium 142 mmol/L (136-145)
[2018-08-19 21:02] LABS: Alanine Aminotransferase 20 U/L (13-56); Aspartate Aminotransferase 11 U/L (15-37); BUN/Creatinine Ratio 21.7; GFR African American 92 mL/min; GFR Non-African American 76 mL/min
[2018-08-19 21:07] LABS: Alkaline Phosphatase 105 U/L (45-117); Bilirubin, Total 0.1 mg/dL (0.2-1.0); Total Protein 7.5 g/dL (6.4-8.2)
[2018-08-19] MEDS ORDERED: MORPHINE SULFATE 4 MG/ML SYR/VIAL IV ONE (21:15)
[2018-08-19] MEDS ORDERED: cloNIDine HCL 0.1 MG TAB PO ONE (21:15)
[2018-08-19] MEDS ORDERED: ONDANSETRON HCL 4 MG/2 ML VIAL IV ONE (21:15)
[2018-08-19] MEDS ORDERED: ASPirin 81 mg TAB PO ONE (21:15)
[2018-08-19 21:28] LABS: Urine Bacteria FEW /hpf (None Seen); Urine Blood Negative /uL (Negative); Urine Mucus FEW (None Seen); Urine Specific Gravity 1.035 (1.001-1.035); Urine WBC 1 /hpf (0 - 5)
[2018-08-19 22:33] LABS: INR 0.92 (0.9-1.15); Partial Thromboplastin Time 25.2 sec (23.78-33.04); Prothrombin Time 9.9 sec (9.27-12.13)
[2018-08-19] MEDS ORDERED: HYDROcodone-ACET 10/325MG TAB PO ONE (23:30)
[2018-08-19] MEDS ORDERED: IOHEXOL 350 MG/ML 100ML IJ ONE (23:39)
[2018-08-20] VITALS (8 sets, daily range): BP systolic 118–145; BP diastolic 57–97
[2018-08-20] MEDS ORDERED: MORPHINE SULF INJ 2 MG/ML SYRINGE 1ML IV ONE ×2 (02:45→04:30)
[2018-08-20] MEDS ORDERED: cloNIDine HCL 0.1 MG TAB PO ONE (04:30)
[2018-08-20] MEDS ORDERED: LORazepam 2MG/ML-1ML VIAL IV ONE (04:30)
[2018-08-20] MEDS ORDERED: MORPHINE SULF INJ 2 MG/ML SYRINGE 1ML IV PRN (05:00)
[2018-08-20] MEDS ORDERED: ONDANSETRON HCL 4 MG/2 ML VIAL IV PRN (05:00)
[2018-08-20] MEDS ORDERED: ACETAMINOPHEN 325 MG TAB PO PRN (05:00)
[2018-08-20] MEDS ORDERED: ATROPINE SULF 1 MG/10ml SYR IV ONE (05:15)
[2018-08-20] MEDS ORDERED: ATROPINE SULF 0.5 MG/5ML SYR ONE (05:21)
--- NOTE | 2018-08-20 07:50 | NUR ---
Admit to [facility] admitted to [facility] via gurney on activity therapy teacher, and portable 02. Patient transferred to bed, connected to unit monitoring and oxygen, and weighed by bed scale. Patient oriented to LUIS ROMEO RN primary RN, unit, room, bed, and unit policies regarding patient care and visiting hours. All questions and concerns addressed, patient verbalized understanding.
--- NOTE | 2018-08-20 08:30 | NUR ---
DR. HERNANDEZ HERE TO SEE PATIENT. SEE MD NOTES AND EMR FOR ANY NEW ORDERS.
[2018-08-20] MEDS: NITROGLYCERIN 0.4 MG SL TAB SL PRN ×2 (09:59→15:18)
[2018-08-20] MEDS: LISINOPRIL 20 MG TAB PO SCH (10:00)
[2018-08-20] MEDS ORDERED: FAMOTIDINE 20 MG TAB PO SCH (10:00)
[2018-08-20] MEDS: CLOPIDOGREL BISULFATE 75 MG TAB PO SCH (10:16)
[2018-08-20] MEDS: ASPirin 81 mg TAB PO SCH (10:16)
--- NOTE | 2018-08-20 12:00 | NUR ---
DR. LAND HERE TO SEE PATIENT. SEE MD NOTES AND EMR FOR ANY NEW ORDERS.
--- NOTE | 2018-08-20 12:15 | NUR ---
DR. KULKARNI HERE TO SEE PATIENT. SEE MD NOTES AND EMR FOR ANY NEW ORDERS.
[2018-08-20] MEDS ORDERED: PANTOPRAZOLE 40 MG TAB PO ONE (12:30)
[2018-08-20] MEDS: HYDROcodone-ACET 5/325MG TAB PO PRN ×2 (15:29→21:35)
--- NOTE | 2018-08-20 19:30 | NUR ---
RECEIVED PT FROM DAY RN POC REVIEWED
--- NOTE | 2018-08-20 21:00 | NUR ---
pts family at bedside
[2018-08-20] MEDS: ATORVASTATIN 20 MG TAB PO SCH (21:36)
[2018-08-20] MEDS: PANTOPRAZOLE 40 MG TAB PO SCH (21:36)
--- NOTE | 2018-08-20 22:38 | NUR ---
pts family asked to leave so pt can rest pt had 6 visitors
--- NOTE | 2018-08-21 01:53 | NUR ---
resting with eyes closed resp even and unlabored, call light within reach, bed alarm intact, pts hr drops to 38-35 while asleep,
[2018-08-21 04:00] VITALS: BP 156/95
--- NOTE | 2018-08-21 04:15 | NUR ---
awoke up to [facility] c/o gen pain 11/14 medicated with norco as ordered, no c/o cp.
[2018-08-21] MEDS: HYDROcodone-ACET 5/325MG TAB PO PRN ×3 (04:17→14:27)
--- NOTE | 2018-08-21 05:04 | NUR ---
partial bath and linen change given
[2018-08-21 06:03] LABS: BUN/Creatinine Ratio 22.7; Calcium 7.9 mg/dL (8.5-10.1); Potassium 3.8 mmol/L (3.5-5.1)
--- NOTE | 2018-08-21 06:46 | NUR ---
resting with eyes closed, pts hr remains sb 38-50 during the night will continue to monitor
--- NOTE | 2018-08-21 07:45 | NUR ---
DR HERNANDEZ AT BEDSIDE, SPOKE WITH AND EXAMINED PATIENT, DR ORDERED TO OBTAIN CONSENT FOR PACEMAKER TOMORROW AFTER DISCUSSING PROCEDURE WITH PATIENT.
--- NOTE | 2018-08-21 07:53 | NUR ---
report given to am nurse poc reviewed
[2018-08-21 08:15] VITALS: BP 145/92
[2018-08-21] MEDS: ASPirin 81 mg TAB PO SCH (10:00)
[2018-08-21] MEDS: LISINOPRIL 20 MG TAB PO SCH (10:00)
[2018-08-21] MEDS: CLOPIDOGREL BISULFATE 75 MG TAB PO SCH (10:00)
[2018-08-21] MEDS: PANTOPRAZOLE 40 MG TAB PO SCH ×2 (10:00→22:19)
[2018-08-21 11:50] VITALS: BP 148/84
--- NOTE | 2018-08-21 15:29 | NUR ---
PAGED DR HERNANDEZ REGARDING PATIENT RECENT DECISION OF PACEMAKER INSERTION REFUSAL. SPOKE WITH PATIENT AND FAMILY REGARDING INSERTION AND GAVE HANDOUTS REGARDING PROCEDURE PER DTR REQUEST, PATIENT REFUSING PROCEDURE FOR TOMORROW. ALL QUESTIONS ADDRESSED AND AWARE OF PATIENT RIGHT TO REFUSE PROCEDURE. PATIENT REQUESTING SECOND OPINION OUTSIDE OF THIS HOSPITAL.
--- NOTE | 2018-08-21 15:36 | NUR ---
SPOKE WITH DR HERNANDEZ AFTER HE CALLED BACK AND AWARE PATIENT IS REFUSING PACEMAKER INSERTION FOR TOMORROW AND AWARE OF PATIENT REQUEST FOR SECOND OPINION , DR STATED DR Eloy PICKARD WILL SEE PATIENT. PATIENT AND FAMILY AWARE DR Eloy PICKARD WILL SEE PATIENT AND VERBALIZED ACCEPTANCE OF HIS OPINION.
[2018-08-21 15:54] VITALS: BP 157/81
--- NOTE | 2018-08-21 18:57 | NUR ---
PATIENT AGREEING TO HAVE PACEMAKER PLACEMENT TOMORROW AFTER ALL. WILL ENDORSE TO PLANT UTILITY PERSON RN TO OBTAIN CONSENT AND PATIENT STILL REQUESTING DR Eloy PICKARD OR DR LALA TO SEE HER TONIGHT/TOMORROW AM.
[2018-08-21 19:45] VITALS: BP 150/90
[2018-08-21] MEDS: ATORVASTATIN 20 MG TAB PO SCH (22:19)
[2018-08-21] MEDS: hydrALAZINE HCL 20 MG/ML VL IV PRN (22:26)
[2018-08-22] VITALS: BP 156/69
--- NOTE | 2018-08-22 | NUR ---
INSTRUCTED ON NPO POST MIDNIGHT
[2018-08-22] MEDS: HYDROcodone-ACET 5/325MG TAB PO PRN ×4 (00:08→21:11)
--- NOTE | 2018-08-22 00:10 | NUR ---
SPOKE WITH THE REQUESTING IF THE DOCTOR COULD POSTPONE THE PROCEDURE BECAUSE THE PT'S SON WILL ARRIVE FROM [place] AT AROUND 8:00PM TODAY AND HE WANTS TO TALK TO THE DOCTOR FIRST BECAUSE HE KNOWS MORE ABOUT THE PROCEDURE. I INFORMED HIM TO TALK TO THE DOCTOR ABOUT THEIR CONCERNS WHEN THE DOCTOR WILL COME.
--- NOTE | 2018-08-22 00:21 | NUR ---
CONSENTS FOR THE PROCEDURE. ANESTHESIA AND BLOOD TRANSFUSION WERE SIGNED
[2018-08-22 04:45] VITALS: BP 175/86
--- NOTE | 2018-08-22 05:01 | NUR ---
PRE-OP CHECKLIST COMPLETED.
--- NOTE | 2018-08-22 06:00 | NUR ---
Patient bathe/linen change Patient given CHG wipes all over the body. Skin integrity assessed for any changes.Complete Linens and gown changed.
[2018-08-22] MEDS: hydrALAZINE HCL 20 MG/ML VL IV PRN (06:26)
[2018-08-22 07:07] LABS: Basophils # (auto) 0 uL; Basophils % (auto) 0.3 % (0.0-2.0); Eosinophils # (auto) 0.3 uL; Eosinophils % (auto) 2.9 % (0.0-7.0); Hematocrit 40.8 % (36.0-46.0); Hemoglobin 13.5 g/dL (12.2-16.2); Lymphocytes # (auto) 2.7 uL; Lymphocytes % (auto) 29.3 % (10.0-50.0); Mean Corpuscular Hemoglobin 29.9 pg (28.0-32.0); Mean Corpuscular Hgb Conc. 33.2 g/dL (32.0-36.0); Mean Corpuscular Volume 90.2 fL (80.0-100.0); Monocytes # (auto) 0.7 uL; Monocytes % (auto) 7.7 % (0.0-12.0); Neutrophils # (auto) 5.4 uL; Neutrophils % (auto) 59.8 % (37.0-80.0); Platelet Count (auto) 207 10^3/uL (140-450); Red Blood Cells 4.53 10^6/uL (4.0-5.20); White Blood Cell 9.1 10^3/uL (4.4-10.8)
--- NOTE | 2018-08-22 07:30 | NUR ---
OPEN. REPORT RECEIVED FROM DIRECTOR MEETINGS RN BAIRON, ASSUMED CARE OF PT. VITAL SIGNS STABLE AT THIS TIME WITH EXCEPTION OF NON-SYMPTOMATIC BRADYCARDIA, HR 50. SEE INTERVENTIONS FOR INITIAL ASSESSMENT. WILL CONTINUE TO MONITOR PT.
[2018-08-22 07:45] VITALS: BP 154/70
[2018-08-22 07:47] LABS: BUN/Creatinine Ratio 18.6; Calcium 8.4 mg/dL (8.5-10.1); Potassium 3.7 mmol/L (3.5-5.1)
--- NOTE | 2018-08-22 07:55 | NUR ---
DR HERNANDEZ PAGED REGARDING PACEMAKER PROCEDURE TODAY.
--- NOTE | 2018-08-22 08:18 | NUR ---
DR HERNANDEZ CALLED BACK. PACEMAKER PROCEDURE HAS BEEN CANCELLED TODAY DUR TO PT REFUSING PROCEDURE DAY PRIOR. PER DR HERNANDEZ, HE HAS SIGNED OFF THE CASE RELATED TO PT'S REFUSAL.
[2018-08-22] MEDS ORDERED: CLOPIDOGREL BISULFATE 75 MG TAB PO SCH ×2 (10:00→10:47)
[2018-08-22] MEDS ORDERED: ENOXAPARIN SOD 40 MG/0.4 ML SYRINGE SC ONE (11:00)
[2018-08-22] MEDS: CLOPIDOGREL BISULFATE 75 MG TAB PO SCH (11:30)
[2018-08-22] MEDS: PANTOPRAZOLE 40 MG TAB PO SCH ×2 (11:30→21:12)
[2018-08-22] MEDS: ASPirin 81 mg TAB PO SCH (11:30)
[2018-08-22] MEDS: hydrALAZINE HCL 25 MG TAB PO SCH ×2 (11:30→21:12)
[2018-08-22] MEDS: LISINOPRIL 20 MG TAB PO SCH (11:31)
[2018-08-22 11:55] VITALS: BP 186/93
[2018-08-22 15:52] VITALS: BP 140/84
--- NOTE | 2018-08-22 17:08 | NUR ---
REPORT GIVEN TO RUBBER STAMP ASSEMBLERGEOVANNI BEASLEY. PT TO BE TRANSFERRED TO BED 216B VIA WHEELCHAIR.
--- NOTE | 2018-08-22 17:15 | NUR ---
Transfer fro [facility] Assumed care of the patient. Received reports from Nolberto GALARZA [facility] at 1708. Patient is alert and oriented, not in respiratory distress. No complaints of pain. Oriented to floor policy. Patient is on telebox #[id number] reading [id number]. Call light within reach. Instructed to call for assist. Will continue to monitor.
[2018-08-22] MEDS: ATORVASTATIN 20 MG TAB PO SCH (21:11)
[2018-08-22 22:00] VITALS: BP 149/83
[2018-08-23] MEDS: HYDROcodone-ACET 5/325MG TAB PO PRN ×2 (02:18→09:05)
[2018-08-23 05:05] VITALS: BP 155/76
[2018-08-23 08:00] VITALS: BP 140/89
--- NOTE | 2018-08-23 08:00 | NUR ---
Opening Shift Note Assumed care of patient, awake and alert. No S/S of distress/SOB or pain. Instructed on POC and to call for assist PRN, will continue to monitor for changes Q1hr and PRN.
[2018-08-23] MEDS: hydrALAZINE HCL 25 MG TAB PO SCH (09:06)
[2018-08-23] MEDS: PANTOPRAZOLE 40 MG TAB PO SCH (09:08)
[2018-08-23] MEDS: CLOPIDOGREL BISULFATE 75 MG TAB PO SCH (09:08)
[2018-08-23] MEDS: LISINOPRIL 20 MG TAB PO SCH (09:08)
[2018-08-23] MEDS: ASPirin 81 mg TAB PO SCH (09:08)
[2018-08-23] MEDS ORDERED: ENOXAPARIN SOD 40 MG/0.4 ML SYRINGE SC SCH (10:00)
[2018-08-23] MEDS ORDERED: HYDR-4296 PO (10:00)
[2018-08-23] MEDS ORDERED: PANT40T PO (10:00)
[2018-08-23 11:30] VITALS: BP 140/89
--- NOTE | 2018-08-23 13:17 | NUR ---
Discharge instructions given as ordered. Encourage to follow up with PMD in a week, follow up with paint spray inspector Dr. George on 08/26/18 at 3:00pm #[phone] ext. [phone] located at [address] [place] [address]. [address] [place] [phone] as instructed. All questions and concerns addressed. Patient verbalized understanding. Medication reconciliation form completed and copy given to patient. IV removed with catheter intact, pressure dressing applied. Telemetry unit returned to [facility]. Patient taken to vehicle via wheelchair with all personal belongings, accompanied by staff and family member. No distress noted at time of departure.
[2018-08-23 13:38] VITALS: BP 132/79
== END 2018-08-23 11:45 | disposition home or self-care (01) | DRG 201 ==
LOC: ER 19:47 → TELE 08-20 05:24 → DOU IN ICU 08-20 08:18 → TELE-CENTR 08-22 17:20
PROVIDERS: ADMIT Nurse Practitioner; ATTEND Internal Medicine
DX: R00.1 Bradycardia, unspecified (principal); I11.0 Hypertensive heart disease with heart failure; E44.1 Mild protein-calorie malnutrition; I50.32 Chronic diastolic (congestive) heart failure; M94.0 Chondrocostal junction syndrome [Tietze]; E66.01 Morbid (severe) obesity due to excess calories; F11.20 Opioid dependence, uncomplicated; K21.9 Gastro-esophageal reflux disease without esophagitis; I25.10 Atherosclerotic heart disease of native coronary artery without angina pectoris; E11.9 Type 2 diabetes mellitus without complications; E78.5 Hyperlipidemia, unspecified; F17.210 Nicotine dependence, cigarettes, uncomplicated; T44.7X5A Adverse effect of beta-adrenoreceptor antagonists, initial encounter; Z98.61 Coronary angioplasty status; I25.2 Old myocardial infarction; Z90.710 Acquired absence of both cervix and uterus; Z91.19 Patient's noncompliance with other medical treatment and regimen; Z88.8 Allergy status to other drugs, medicaments and biological substances; Z82.49 Family history of ischemic heart disease and other diseases of the circulatory system; Z83.3 Family history of diabetes mellitus; Y92.89 Other specified places as the place of occurrence of the external cause; Z68.42 Body mass index [BMI] 45.0-49.9, adult
CPT/HCPCS: 36415; 71045; 71275; 80048; 80053; 81001; 82550; 83880; 84443; 84484; 85025; 85379; 85610; 85730; 87081; 96374; 96375; 96376; G0378; J0461; J2405

== ENCOUNTER 2018-08-26 14:55 | Inpatient (IN) | payer MEDICAID ==
[~2018-08-26] VITALS: Ht 154.9 cm; Wt 113.6 kg
[~2018-08-26 14:55] MED LIST changes: +HYDR-4296 PO; -METO25TA4 PO; +PANT40T PO
[2018-08-26 15:40] LABS: Basophils # (auto) 0 uL; Basophils % (auto) 0.4 % (0.0-2.0); Eosinophils # (auto) 0.2 uL; Eosinophils % (auto) 2.5 % (0.0-7.0); Hematocrit 41.9 % (36.0-46.0); Hemoglobin 13.9 g/dL (12.2-16.2); Lymphocytes # (auto) 2.3 uL; Lymphocytes % (auto) 24.5 % (10.0-50.0); Mean Corpuscular Hemoglobin 30.1 pg (28.0-32.0); Mean Corpuscular Hgb Conc. 33.2 g/dL (32.0-36.0); Mean Corpuscular Volume 90.5 fL (80.0-100.0); Monocytes # (auto) 0.7 uL; Monocytes % (auto) 7.5 % (0.0-12.0); Neutrophils % (auto) 65.1 % (37.0-80.0); Platelet Count (auto) 216 10^3/uL (140-450); Red Blood Cells 4.63 10^6/uL (4.0-5.20); Red Cell Distribution Width 14.1 % (11.8-14.3); White Blood Cell 9.2 10^3/uL (4.4-10.8)
[2018-08-26 15:50] LABS: Albumin 3.5 g/dL (3.4-5.0); Calcium 8.4 mg/dL (8.5-10.1); Potassium 3.8 mmol/L (3.5-5.1)
[2018-08-26 15:55] LABS: BUN/Creatinine Ratio 18.8
[2018-08-26 15:56] LABS: Bilirubin, Total 0.3 mg/dL (0.2-1.0); Total Protein 7.6 g/dL (6.4-8.2)
[2018-08-26] MEDS ORDERED: traMADol HCL 50 MG TAB PO PRN (17:15)
[2018-08-26] MEDS ORDERED: DEXTROSE (50%) 50ML SYRG IV PRN (17:15)
[2018-08-26] MEDS ORDERED: PROMETHAZINE HCL 25 MG/ML 1ML IV PRN (17:15)
[2018-08-26] MEDS ORDERED: NITROGLYCERIN 0.4 MG SL TAB SL PRN (17:15)
[2018-08-26] MEDS: ACCU-CHEK COMFORT CURVE STRIP VI SCH (17:50)
[2018-08-26] MEDS: SODIUM CHLORIDE 0.9% 1,000 ML IV SCH (17:50)
[2018-08-26] MEDS: MORPHINE SULF INJ 2 MG/ML SYRINGE 1ML IV PRN (20:11)
[2018-08-26 23:00] VITALS: BP 149/82
[2018-08-26] MEDS: ISOSORBIDE MONONITRATE 20 MG TAB PO SCH (23:43)
[2018-08-26] MEDS: ATORVASTATIN 20 MG TAB PO SCH (23:44)
[2018-08-26] MEDS: PANTOPRAZOLE 40 MG TAB PO SCH (23:44)
[2018-08-26] MEDS: hydrALAZINE HCL 25 MG TAB PO SCH (23:45)
--- NOTE | 2018-08-27 04:17 | NUR ---
A&oX3, RESTING ON HER BED. CURRENTLY ON ROOM AIR, PAIN LEVEL OF 0/10. PATIENT CAME TO THE HOSPITAL FOR SOB, CHEST PAIN OF 8/10 AND CHEST PRESSURE. BED IS LOCKED IN LOWEST POSITION, SIDE RAILS UP X2, CALL LIGHT WITHIN REACH, AND BED ALARM ON FOR SAFETY. NO OPEN WOUNDS. WILL CONTINUE TO ROUND. Addendum: 08/27/18 at 6751 by Karen Hodgson RN CORRECT DATE AND TIME FOR OPENING NOTE: 08/26/2018 at 3288
[2018-08-27 05:00] VITALS: BP 112/74
[2018-08-27] MEDS: ACCU-CHEK COMFORT CURVE STRIP VI SCH ×5 (06:00→23:51)
--- NOTE | 2018-08-27 06:18 | NUR ---
EKG completed per order: Ventricular rate: 52; sinus bradycardia, possible left atrial enlargement, left bundle branch block, abnormal ECG.
[2018-08-27] MEDS: SODIUM CHLORIDE 0.9% 1,000 ML IV SCH (06:31)
--- NOTE | 2018-08-27 06:39 | NUR ---
Drug screen urine sample sent to lab via [employer] system.
[2018-08-27 06:56] LABS: Alcohol, Urine < 3.0 mg/dL (0-5); Amphetamine Screen, Urine NEGATIVE (NEGATIVE); Barbiturate Scree,Urine NEGATIVE (NEGATIVE); Benzodiazephine Screen, Urine NEGATIVE (NEGATIVE); Cannabinoid Screen, Urine NEGATIVE (NEGATIVE); Cocaine Screen, Urine NEGATIVE (NEGATIVE); Opiate Scree,Urine POSITIVE (NEGATIVE); Phencyclidine Screen, Urine NEGATIVE (NEGATIVE)
[2018-08-27 07:02] LABS: Cholesterol 134 mg/dL (< 200); HDL Cholesterol 42 mg/dL (40-59); LDL Cholesterol 74 mg/dL (< 100); Triglycerides 140 mg/dL (< 150)
--- NOTE | 2018-08-27 08:00 | NUR ---
Opening Shift Note Assumed care of patient, awake and alert. No S/S of distress/SOB or pain. Patient sleeping at this time. Will continue to monitor for changes Q1hr and PRN.
--- NOTE | 2018-08-27 08:35 | NUR ---
[facility] - HEART RATE [facility] CALLED AND REPORTED PATIENT'S HEART RATE DROPPED TO 38. PATIENT IS ASYMPTOMATIC AT THIS TIME. SHE IS AWAKE AND ALERT.
[2018-08-27 09:00] VITALS: BP 138/77
[2018-08-27] MEDS: PANTOPRAZOLE 40 MG TAB PO SCH ×2 (09:42→22:10)
[2018-08-27] MEDS: LISINOPRIL 20 MG TAB PO SCH (09:42)
[2018-08-27] MEDS: CLOPIDOGREL BISULFATE 75 MG TAB PO SCH (09:42)
[2018-08-27] MEDS: hydrALAZINE HCL 25 MG TAB PO SCH ×2 (09:42→22:09)
[2018-08-27] MEDS: ASPirin 81 mg TAB PO SCH (09:42)
[2018-08-27] MEDS: ISOSORBIDE MONONITRATE 20 MG TAB PO SCH ×2 (09:43→22:09)
[2018-08-27] MEDS: MORPHINE SULF INJ 2 MG/ML SYRINGE 1ML IV PRN (09:45)
[2018-08-27] MEDS ORDERED: PANTOPRAZOLE 40 MG TAB PO SCH (10:00)
--- NOTE | 2018-08-27 11:51 | NUR ---
BLOOD SUGAR PATIENT'S BLOOD SUGAR IS 137. NO ORDERS FOR INSULIN IN EMAR.
[2018-08-27 13:00] VITALS: BP 108/62
[2018-08-27 17:00] VITALS: BP 150/82
--- NOTE | 2018-08-27 17:36 | NUR ---
BLOOD SUGAR PATIENT'S BLOOD SUGAR WAS 124. Addendum: 08/27/18 at 1737 by ESTELLA CANDELARIO RN RN BLOOD SUGAR WAS 126.
[2018-08-27] MEDS: ACETAMINOPHEN 500 MG TAB PO PRN (18:30)
--- NOTE | 2018-08-27 19:50 | NUR ---
RECEIVED PATIENT FROM DAY SHIFT GEOVANNI SORIA FROM [facility], PATIENT TRANSFERRED FROM [facility] VIA HOSPITAL BED WITH NO S/S OF DISTRESS NOTED. PATIENT C/O CHEST PAIN @ 5/10 AFTER PAIN MEDICATION GIVEN EARLIER. SHE STATED TYLENOL NOT HELP FOR HER PAIN AND SHE NEEDS MORE STRONGER PAIN MEDICATION. WILL CALL HOSPITALIST LATER FOR THAT. POC INSTRUCTED AND ENCOURAGED PATIENT TO CALL FOR COOKER LOADER IF NEEDED. BED IN LOWEST POSITION WITH SIDE RAILS UP X 2. CALL RUBIO WITHIN REACH. CONTINUE TO MONITOR FOR CHANGES Q1H AND PRN.
--- NOTE | 2018-08-27 20:13 | NUR ---
HOSPITALIST Called/paged LAURA PAYAN called re PATIENT REQUESTED TO HAVE MORE STRONGER PAIN MEDICATION. Waiting for call back. Continue care.
--- NOTE | 2018-08-27 20:40 | NUR ---
HOSPITALIST ROUNDS LAURA PAYAN ROUNDS TO [facility], updated on patient status and reason for call, NO TREATMENT CHANGED, KEEP CURRENT TREATMENT, TYLENOL ONLY. Continue care.
[2018-08-27 22:00] VITALS: BP 156/89
[2018-08-27] MEDS: ATORVASTATIN 20 MG TAB PO SCH (22:10)
--- NOTE | 2018-08-27 22:23 | NUR ---
HOSPITALIST Called/paged LAURA PAYAN called re: PATIENT NEEDS MORE STRONGER PAIN MEDICATION NOW FOR HER BACK PAIN AND LEG PAIN. HER ON THE NEXT BED STATED PATIENT IS CRYING FOR PAIN. Waiting for call back. Continue care.
--- NOTE | 2018-08-27 23:14 | NUR ---
HOSPITALIST returned call LAURA PAYAN returned call, updated on patient status and reason for call, orders received. STRAWBERRY , ONCE. Continue care.
[2018-08-27] MEDS ORDERED: HYDROcodone-ACET 10/325MG TAB PO ONE (23:15)
--- NOTE | 2018-08-27 23:45 | NUR ---
MEDICATED PATIENT ORDERED FOR PAIN @ 01/14. CONTINUE TO MONITOR.
--- NOTE | 2018-08-28 00:13 | NUR ---
ACCU-CHECK, BS 112. CONTINUE CARE.
[2018-08-28] MEDS: SODIUM CHLORIDE 0.9% 1,000 ML IV SCH ×3 (03:13→22:09)
--- NOTE | 2018-08-28 03:13 | NUR ---
PATIENT SLEEPING. NO S/S OF DISTRESS NOTED. CONTINUE CAR.E
[2018-08-28 05:00] VITALS: BP 150/88
[2018-08-28] MEDS: ACCU-CHEK COMFORT CURVE STRIP VI SCH ×4 (06:12→23:41)
--- NOTE | 2018-08-28 06:12 | NUR ---
ACCU-CHECK, BS 113. CONTINUE CARE.
--- NOTE | 2018-08-28 07:15 | NUR ---
CALL FROM [facility] CALLED, PATIENT HEART RATE 39, BOTH THIS RN AND NIGHTSHIFT RN WERE EXCHANGING SHIFT REPORT AND WENT TO PT ROOM TO CHECK ON PATIENT, PATIENT WAS RESTING IN BED, EASILY AROUSABLE, RESPONDED TO VERBALIZATION OF HER NAME, NO S/S OF DISTRESS OR SOB NOTED, WILL CONTINUE TO MONITOR PT Q1HR AND PRN
[2018-08-28 08:00] VITALS: BP 152/97
[2018-08-28 09:00] VITALS: BP 200/85
[2018-08-28] MEDS: ASPirin 81 mg TAB PO SCH (10:29)
[2018-08-28] MEDS: ISOSORBIDE MONONITRATE 20 MG TAB PO SCH ×2 (10:30→22:08)
[2018-08-28] MEDS: hydrALAZINE HCL 25 MG TAB PO SCH ×2 (10:30→22:08)
[2018-08-28] MEDS: CLOPIDOGREL BISULFATE 75 MG TAB PO SCH (10:30)
[2018-08-28] MEDS: LISINOPRIL 20 MG TAB PO SCH (10:31)
[2018-08-28] MEDS: ACETAMINOPHEN 500 MG TAB PO PRN (10:31)
[2018-08-28] MEDS: PANTOPRAZOLE 40 MG TAB PO SCH ×2 (10:31→22:08)
--- NOTE | 2018-08-28 11:37 | NUR ---
IV removal Patient removed IV, catheter found fully intact. Pressure dressing applied to site. Patient tolerated well. Explained purpose of IV, patient refusing at this time, will attempt to insert IV at a later time.
[2018-08-28 13:00] VITALS: BP 131/74
--- NOTE | 2018-08-28 16:20 | NUR ---
PAIN MEDS TWO HOURS AGO PATIENT GIVEN A TRAMADOL AT PATIENT REQUEST AFTER ALLERGIES VERIFIED, PT GIVEN THE OPTION FOR A TYLENOL INSTEAD, PT OPTED FOR TRAMADOL. PATIENT NOW STATING THAT SHE DOESN'T LIKE TRAMADOL AND WOULD HAVE NEVER TAKEN IT, STATES IT GIVES HER THE SHAKES AND MAKES HER JUMPY. PATIENT ALSO STATED SHE DOES NOT KNOW WHY SHE IS HERE BECAUSE SHE HAS CHEST PAIN BUT CANNOT RECEIVE PAIN MEDICATION, SHE "TOLD THE NURSE THAT HER IV WAS HURTING AND FALLING OUT AND NOTHING WAS DONE AND I TOLD YOU IT WAS HURTING", SHE IS "FRUSTRATED" AND "WANTS TO LEAVE". PATIENT STATES SHE WANTS MORPHINE FOR HER CHEST PAIN. THIS RN ASKED PATIENT TO DESCRIBE HER CHEST PAIN, PT STATED "MY CHEST JUST HURTS, AND MY BACK, AND MY BODY JUST ACHES", EXPLAINED TO THE PATIENT THAT THE MORPHINE ORDERED IS FOR HEART ATTACK RELATED CHEST PAIN, PT STATES "WELL JUST RUN WHATEVER TESTS YOUR HAVE TO DO FOR THE MORPHINE", OXYGEN WAS APPLIED AT 2L VIA NASAL CANNULA, PATIENT WILL BE REASSESSED SHORTLY. REGARDING PT'S IV, PT WAS REASSURED THAT SHE HAD NOT MENTIONED TO THIS RN THAT HER IV WAS BOTHERING HER, SHE INSISTED THAT SHE HAD. HOWEVER, THIS PATIENT HAD NOT ONCE MENTIONED THAT HER IV WAS GIVING HER TROUBLE EVEN AFTER SHE WAS ASKED DURING MORNING ASSESSMENT.
--- NOTE | 2018-08-28 16:48 | NUR ---
CALL TO DR TAMAYO REQUEST MADE FOR PAIN MEDICATION, NEW ORDER PLACED FOR NORCO 5 Q6PRN
[2018-08-28 17:00] VITALS: BP 152/90
[2018-08-28] MEDS: HYDROcodone-ACET 5/325MG TAB PO PRN (18:08)
--- NOTE | 2018-08-28 19:45 | NUR ---
RECEIVED PATIENT FROM DAY SHIFT RN. PATIENT RESTING IN BED. NO S/S OF DISTRESS NOTED. C/O PAIN @ 2/10 AFTER PAIN MEDICATION GIVEN EARLIER. REVIEWED SCHEDULE OF PAIN MANAGEMENT. WILL COME BACK FOR PAIN MEDICATION WHEN THE TIME IS DUE AND PER PATIENT REQUEST. PATIENT VERBALIZED UNDERSTANDING. NO IV ACCESS NOW. WILL COME BACK FOR IT LATER. POC INSTRUCTED AND ENCOURAGED PATIENT TO CALL FOR LINOLEUM FLOOR LAYER IF NEEDED. BED IN LOWEST POSITION WITH SIDE RAILS UP X 2. CALL RUBIO WITHIN REACH. CONTINUE TO MONITOR FOR CHANGES Q1H AND PRN.
--- NOTE | 2018-08-28 19:45 | NUR ---
RECEIVED PATIENT FROM DAY SHIFT RN. PATIENT RESTING IN BED. NO S/S OF DISTRESS NOTED. C/O PAIN @ 2/10 AFTER PAIN MEDICATION GIVEN EARLIER. REVIEWED SCHEDULE OF PAIN MANAGEMENT. WILL COME BACK FOR PAIN MEDICATION WHEN THE TIME IS DUE AND PER PATIENT REQUEST. PATIENT VERBALIZED UNDERSTANDING. POC INSTRUCTED AND ENCOURAGED PATIENT TO CALL FOR WINDER FIXER IF NEEDED. BED IN LOWEST POSITION WITH SIDE RAILS UP X 2. CALL RUBIO WITHIN REACH. CONTINUE TO MONITOR FOR CHANGES Q1H AND PRN.
--- NOTE | 2018-08-28 20:44 | NUR ---
IV insertion IV access obtained, via clean sterile technique by inserting [22] gauge catheter at [LFA] after [1] attempt(s). IV secured properly. No trauma to site. Patient tolerated well. NOTE: []
[2018-08-28 21:30] VITALS: BP 146/72
[2018-08-28] MEDS: ATORVASTATIN 20 MG TAB PO SCH (22:08)
--- NOTE | 2018-08-28 23:41 | NUR ---
ACCU-CHECK, BS105. CONTINUE TO MONITOR.
[2018-08-29] MEDS: HYDROcodone-ACET 5/325MG TAB PO PRN ×2 (00:20→11:02)
--- NOTE | 2018-08-29 00:21 | NUR ---
PATIENT C/O PAIN @ 10/14. MEDICATED PATIENT ORDERED. CONTINUE TO MONITOR.
[2018-08-29] MEDS: ACETAMINOPHEN 500 MG TAB PO PRN (02:57)
--- NOTE | 2018-08-29 02:57 | NUR ---
PATIENT C/O HEADACHE 01/14. MEDICATED PATIENT ORDERED. CONTINUE TO MONITOR.
[2018-08-29 04:30] VITALS: BP 136/64
--- NOTE | 2018-08-29 04:33 | NUR ---
PATIENT SLEEPING. NO S/S OF DISTRESS NOTED. CONTINUE CAR.E
[2018-08-29] MEDS: ACCU-CHEK COMFORT CURVE STRIP VI SCH ×2 (06:03→12:00)
--- NOTE | 2018-08-29 06:03 | NUR ---
ACCU-CHECK, BS 98. CONTINUE TO MONITOR.
--- NOTE | 2018-08-29 07:07 | NUR ---
Opening Shift Note Assumed care of patient, pt asleep and snoring in bed in a left lateral position, No S/S of distress/SOB or pain, call light within reach, bed rails up x2, bed in lowest locked position, will continue to monitor for changes Q1hr and PRN.
[2018-08-29 08:00] VITALS: BP 154/91
[2018-08-29 08:48] VITALS: BP 154/91
--- NOTE | 2018-08-29 10:30 | NUR ---
ROUNDS DR. AVILA AT BEDSIDE, ANOTHER CARDIOLOGY CONSULT PLACED, IF CLEAR, PATIENT MAY D/C, WILL MONITOR FOR CARDIO RESULTS AND IF CLEAR THIS RN WILL CONTACT DR AVILA FOR D/C ORDER, ALSO OK TO D/C ACCUCHECK PER
[2018-08-29] MEDS: hydrALAZINE HCL 25 MG TAB PO SCH (10:34)
[2018-08-29] MEDS: ASPirin 81 mg TAB PO SCH (10:34)
[2018-08-29] MEDS: ISOSORBIDE MONONITRATE 20 MG TAB PO SCH (10:34)
[2018-08-29] MEDS: PANTOPRAZOLE 40 MG TAB PO SCH (10:34)
[2018-08-29] MEDS: LISINOPRIL 20 MG TAB PO SCH (10:35)
[2018-08-29] MEDS: CLOPIDOGREL BISULFATE 75 MG TAB PO SCH (10:35)
[2018-08-29 12:47] VITALS: BP 183/110
[2018-08-29] MEDS: SODIUM CHLORIDE 0.9% 1,000 ML IV SCH (13:06)
--- NOTE | 2018-08-29 14:25 | NUR ---
PAIN MED REQUESTS PATIENT REPEATEDLY ASKING FOR D/C PRESCRIPTION FOR PAIN MEDICATION, PT HAS BEEN TOLD BY MD TO FOLLOWUP WITH PCP, INTERRUPTS CONVERSATION AND STATES THAT RN IS NOT TRYING TO BE HELPFUL AND THEY WANT SOMEONE ELSE, PT REASSURED THAT ATTEMPTS HAVE BEEN MADE TO INQUIRE ABOUT POSSIBLE D/C PRESCRIPTIONS, STILL APPEARS UNSATISFIED WITH THE RESULT. PT WILL BE D/C'D SHORTLY.
[2018-08-29 14:56] VITALS: BP 154/91
--- NOTE | 2018-08-29 15:13 | NUR ---
D/C INFORMATION FOR PATIENT PATIENT ENCOURAGED TO FOLLOWUP WITH: DOCTOR LALA IN 1-2 WEEKS AD[address]ESS: [id number] [place] [address] TELEPHONE: [phone] DATE & TIME: PATIENT TO MAKE OWN APPOINTMENT PATIENT ALSO TO FOLLOWUP WITH PRIMARY CARE PHYSICIAN IN 1 TO 2 WEEKS. PATIENT ALSO PROVIDED WITH A COUPON TO USE: URGENT CARE ADDRESS: [id number] [place] [address] [address], [place] [address] TELEPHONE: [phone] DATE & TIME: OPEN 8AM-8PM WEDNESDAY-WEDNESDAY THE BUSINESS CARD FOR [facility] HAS ALSO BEEN PROVIDED SHOULD PATIENT HAVE ANY FURTHER QUESTIONS. PATIENT DOES HAVE INSURANCE BUT HAS NOT CHOSEN/BEEN ASSIGNED A PRIMARY CARE PHYSICIAN. PATIENT ENCOURAGED TO CONTACT INSURANCE PROVIDER TO CHOOSE A PCP.
--- NOTE | 2018-08-29 16:50 | NUR ---
Discharge Instructions given as ordered. Encouraged to follow up with PMD as instructed. All questions and concerns addressed. Patient verbalized understanding. No medication reconciliation form as patient did not bring in current meds, no home medications held in Pharmacy to return to patient, and no needed vaccines. IV removed with catheter intact, pressure dressing applied, no brewer catheter to remove. Telemetry unit returned to [facility]. Patient refused to be taken vehicle via wheelchair, she insisted that she would walk with all personal belongings, accompanied by staff and . No distress noted at time of departure.
== END 2018-08-29 16:50 | disposition home or self-care (01) | DRG 198 ==
LOC: ER 14:55 → TELE 17:41 → TELE-EAST 21:15 → TELE-CENTR 21:22
PROVIDERS: ADMIT Internal Medicine; ATTEND Internal Medicine
DX: R07.89 Other chest pain (principal); I25.119 Atherosclerotic heart disease of native coronary artery with unspecified angina pectoris; I11.0 Hypertensive heart disease with heart failure; E66.01 Morbid (severe) obesity due to excess calories; I50.42 Chronic combined systolic (congestive) and diastolic (congestive) heart failure; I25.2 Old myocardial infarction; Z82.49 Family history of ischemic heart disease and other diseases of the circulatory system; K21.9 Gastro-esophageal reflux disease without esophagitis; E78.5 Hyperlipidemia, unspecified; Z68.42 Body mass index [BMI] 45.0-49.9, adult; E11.9 Type 2 diabetes mellitus without complications; F17.210 Nicotine dependence, cigarettes, uncomplicated; Z83.3 Family history of diabetes mellitus; Z90.710 Acquired absence of both cervix and uterus; Z95.5 Presence of coronary angioplasty implant and graft; Z79.899 Other long term (current) drug therapy; Z79.82 Long term (current) use of aspirin
CPT/HCPCS: 36415; 71046; 80053; 80061; 80307; 82550; 82962; 83036; 83735; 84484; 85025; 85379; 85652; 86141; 93005; 96374; 96375; G0378

== ENCOUNTER 2018-12-16 04:41 | Emergency (ER) | payer MEDICAID ==
[~2018-12-16] VITALS: Ht 154.9 cm; Wt 106.6 kg
[2018-12-16 05:53] LABS: Basophils # (auto) 0 uL; Basophils % (auto) 0.5 % (0.0-2.0); Eosinophils # (auto) 0.2 uL; Eosinophils % (auto) 2.3 % (0.0-7.0); Hemoglobin 11.8 g/dL (12.2-16.2); Lymphocytes # (auto) 2.5 uL; Lymphocytes % (auto) 27.1 % (10.0-50.0); Mean Corpuscular Hemoglobin 29.5 pg (28.0-32.0); Mean Corpuscular Hgb Conc. 32.9 g/dL (32.0-36.0); Mean Corpuscular Volume 89.9 fL (80.0-100.0); Monocytes # (auto) 0.8 uL; Monocytes % (auto) 8.7 % (0.0-12.0); Neutrophils # (auto) 5.8 uL; Neutrophils % (auto) 61.4 % (37.0-80.0); Platelet Count (auto) 206 10^3/uL (140-450); Red Blood Cells 4.01 10^6/uL (4.0-5.20); Red Cell Distribution Width 14.7 % (11.8-14.3); White Blood Cell 9.4 10^3/uL (4.4-10.8)
[2018-12-16 06:11] LABS: INR < 0.93 (0.9-1.15); Partial Thromboplastin Time 21.6 sec (23.64-32.05)
[2018-12-16 06:22] LABS: Alanine Aminotransferase 22 U/L (13-56); Albumin 3.2 g/dL (3.4-5.0); Anion Gap 6 (5-15); Aspartate Aminotransferase 14 U/L (15-37); BUN/Creatinine Ratio 29.3; Blood Urea Nitrogen 22 mg/dL (7-18); Calcium 8.4 mg/dL (8.5-10.1); Carbon Dioxide 26 mmol/L (21-32); Chloride 110 mmol/L (98-107); GFR African American 103 mL/min; GFR Non-African American 85 mL/min; Glucose 107 mg/dL (74-106); Potassium 3.8 mmol/L (3.5-5.1); Sodium 142 mmol/L (136-145)
[2018-12-16 06:26] LABS: Alkaline Phosphatase 96 U/L (45-117); Bilirubin, Total 0.3 mg/dL (0.2-1.0); Total Protein 7.1 g/dL (6.4-8.2)
[2018-12-16] MEDS ORDERED: ONDANSETRON HCL 4 MG/2 ML VIAL IV ONE (07:15)
[2018-12-16] MEDS ORDERED: MORPHINE SULFATE 4 MG/ML SYR/VIAL IV ONE (07:15)
[2018-12-16 08:15] VITALS: BP 123/49
== END 2018-12-16 08:42 | disposition home or self-care (01) ==
LOC: ER 04:41
DX: R07.89 Other chest pain (principal); M79.605 Pain in left leg; M79.604 Pain in right leg; I25.10 Atherosclerotic heart disease of native coronary artery without angina pectoris; I11.0 Hypertensive heart disease with heart failure; I50.9 Heart failure, unspecified; E11.9 Type 2 diabetes mellitus without complications; I25.2 Old myocardial infarction; E78.5 Hyperlipidemia, unspecified; F17.210 Nicotine dependence, cigarettes, uncomplicated; Z88.8 Allergy status to other drugs, medicaments and biological substances; Z79.82 Long term (current) use of aspirin; Z79.01 Long term (current) use of anticoagulants; Z79.899 Other long term (current) drug therapy; Z90.710 Acquired absence of both cervix and uterus; Z98.61 Coronary angioplasty status
CPT/HCPCS: 36415; 71045; 80053; 83735; 83880; 84484; 85025; 85610; 85730; 93005; 93970; 94761; 96374; 96375; 99284; J2270; J2405